=== PATIENT | female | born 1995 | race Caucasian/White ===

== ENCOUNTER 2022-11-16 14:40 | Emergency (ER) | payer MEDICAID, OTHER ==
[~2022-11-16] VITALS: Ht 170.2 cm; Wt 79.5 kg
[2022-11-16 14:48] VITALS: BP 126/70; PULSE 96; RESP 20; TEMP 97.7
== END 2022-11-16 16:28 | disposition home or self-care (01) ==
LOC: EMS 14:56
DX: O99.343 Other mental disorders complicating pregnancy, third trimester (principal); Z3A.36 36 weeks gestation of pregnancy; Z98.890 Other specified postprocedural states
CPT/HCPCS: 99281; Z7502